=== PATIENT | female | born 1995 | race Caucasian/White ===

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

== ENCOUNTER 2017-03-28 23:52 | Emergency (ER) | payer OTHER ==
[2017-03-29] VITALS: BMI 23.6
--- NOTE | 2017-03-29 02:17 | DR.GENAD ---
HPI - PCP Primary Care Physician: JOSSIE - HPI Comment HPI Comment: PATIENT SAID SHE WAS ANEMIC AFTER GIVEN BIETH 2 WEEKS AGO. NO FEVER. SLIGHT HEADACHE. NO TRAUMA. - Complaint/Symptoms Chief Complaint Doctors Comments: HAD SYNCOPAL EPISODE AT HOME TONIGHT. 2 WEEKS POST . Chief Complaint:: SYNCOPAL EPISODE AFTER JUMPING OUT OF BED TRYING TO ANSWER THE DOOR, Self Treatment fo Chief Complaint: NONE - Nurses notes reviewed Nurses Notes Review: Yes - Source History Provided: Patient - Mode of Arrival Mode of Arrival: Ambulatory - Timing Onset of Chief Complaint: 03/28/17 Came on: Suddenly - Duration Duration: Since Onset Duration: Hours - Severity Severity: Moderate PMH - PMH Past Medical History: No Past Surgical History: No - Family History History of Family Medical Conditions: No - Social History Does patient currently use any type of tobacco product: No Have you used tobacco products in the last 12 months: No Type of Tobacco Use: None Does any household member use tobacco: No Alcohol Use: None Do you use any recreational Drugs:: No Lives With: Significant Other Lives Where: Home - infectious screening In the last 2 months have you had wt loss of >10#?: NO Have you had fever, night sweats or hemotysis?: No Have you traveled outside the country in the last 6 months?: No Isolation: Standard ROS - Review of Systems Constitutional: No Symptoms Reported. negative: Chills, Fever, Weakness, Fatigue, Loss of Appetite Eyes: No Symptoms Reported. negative: Eye Pain, Discharge ENTM: No Symptoms Reported. negative: Ear Pain, Nose Discharge, Nose Congestion , Throat Pain Respiratoy: No Symptoms Reported. negative: Productive Cough, Non-Productive Cough, Short of Breath, Wheezing, Hemoptysis Cardiovascular: No Symptoms Reported, Palpitations, Syncope. negative: Edema Gastrointestinal/Abdominal: No Symptoms Reported. negative: Constipation, Diarrhea, Nausea, Vomiting Genitourinary: No Symptoms Reported. negative: Dysuria, Frequency, Hematuria Neurological: No Symptoms Reported Musculoskeletal: No Symptoms Reported Integumentary: No Symptoms Reported Hematologic/Lymphatic: Anemia Endocrine: No Symptoms Reported All Other Systems: Reviewed and Negative PE - Vital Signs Vitals: Temperature 98.2 F Pulse Rate [Left Brachial] 66 Pulse Rate 62 Respiratory Rate 16 Blood Pressure [Left Arm] 123/88 Blood Pressure 137/94 O2 Sat by Pulse Oximetry 99 - General Limitations: No Limitations General Appearance: Alert - Head Head Exam: Normal Inspection - Eyes Eye exam: Normal Appearance - ENT ENT Exam: Normal External Ear Exam External Ear Exam: Normal External Inspection TM/Canal Exam: Bilateral Normal Nose Exam: Normal Nose Exam Mouth Exam: Normal Inspection Throat Exam: Normal Inspection - Neck Neck Exam: Trachea Midline - Chest Chest Inspection: Symmetric Chest Wall Rise - Respiratory Respiratory Exam: Normal Lung Sounds Bilat Respiratory Exam: Bilateral Clear to Auscultation - Cardiovascular Cardiovascular Exam: Regular Rate, Normal Rhythm, Normal Heart Sounds - Abdominal Exam Abdominal Exam: Normal Bowel Sounds, Soft. negative: Tenderness - Extremities Extremities Exam: Normal Inspection - Back Back Exam: Normal Inspection - Neurologic Neurological Exam: Oriented X3, CN II-XII Intact, Motor Sensory Deficit, Reflexes Normal - Psychiatric Psychiatric Exam: Agitated - Skin Skin Exam: Normal Color, Rash MDM - Additional Information Additional Information Obtained From: Family - Differential Diagnosis Differential Diagnosis: SYNCOPAL EPISODE Course - Treatment Treatment: SEE ORDERS. - Education/Counseling Education/Counseling: Patient, Family, Education Educated On: Diagnosis, Needs for Follow Up ROR - Labs Reviewed Laboratory Results Reviewed?: Yes Result Diagrams: 03/29/17 02:30 03/29/17 02:30 Laboratory: 03/29/17 03:10 Urine,Clean Catch Urine Culture - Final WBC 10.2 X10^3/uL (3.6-10.0) H 03/29/17 02:30 RBC 4.12 X10^6/uL (3.5-5.4) 03/29/17 02:30 Hgb 12.5 g/dL (12.0-16.0) 03/29/17 02:30 Hct 35.9 % (36.0-47.0) L 03/29/17 02:30 MCV 87.1 fL (80.0-100.0) 03/29/17 02:30 MCH 30.2 pg (27.0-34.0) 03/29/17 02:30 MCHC 34.7 g/dL (33.0-35.0) 03/29/17 02:30 RDW 13.4 % (11.6-16.5) 03/29/17 02:30 Plt Count 335 X10^3/uL (150.0-450.0) 03/29/17 02:30 MPV 7.0 fL (7.4-11.0) L 03/29/17 02:30 Neut % 71.2 % (42.0-75.0) 03/29/17 02:30 Lymph % 21.7 % (21.0-51.0) 03/29/17 02:30 [place] % 5.1 % (0.0-13.0) 03/29/17 02:30 Eos % 1.3 % (0.9-2.9) 03/29/17 02:30 Baso % 0.7 % (0.2-1.0) 03/29/17 02:30 Neut # 7.2 x10^3/uL (2.2-4.8) H 03/29/17 02:30 Lymph # 2.2 X10^3/uL (1.3-2.9) 03/29/17 02:30 [place] # 0.5 x10^3/uL (0.3-0.8) 03/29/17 02:30 Eos # 0.1 x10^3/uL (0.0-0.2) 03/29/17 02:30 Baso # 0.1 X10^3/uL (0.0-0.1) 03/29/17 02:30 Absolute Nucleated RBC 0.0 /100WBC 03/29/17 02:30 Sodium 138 mmol/L (136-145) 03/29/17 02:30 Corrected Sodium TNP 03/29/17 02:30 Potassium 4.0 mmol/L (3.5-5.1) 03/29/17 02:30 Chloride 106 mmol/L (98-107) 03/29/17 02:30 Carbon Dioxide 28.5 mmol/L (21-32) 03/29/17 02:30 BUN 9 mg/dL (7-18) 03/29/17 02:30 Creatinine 0.78 mg/dL (0.55-1.02) 03/29/17 02:30 Est GFR (MDRD) Af Amer > 60 (>60) 03/29/17 02:30 Est GFR (MDRD) Non-Af > 60 (>60) 03/29/17 02:30 Glucose 86 mg/dL (65-99) 03/29/17 02:30 Calcium 9.3 mg/dL (8.5-10.1) 03/29/17 02:30 Corrected Calcium TNP 03/29/17 02:30 Total Bilirubin 0.30 mg/dL (0.2-1.0) 03/29/17 02:30 AST 19 Units/L (15-37) 03/29/17 02:30 ALT 21 Units/L (12-78) 03/29/17 02:30 Alkaline Phosphatase 112 Units/L (45-150) 03/29/17 02:30 Creatine Kinase 39 Units/L (26-192) 03/29/17 02:30 CK-MB (CK-2) < 1.0 ng/mL (0-4.0) 03/29/17 02:30 CK/CKMB % Calc 2.6 % (<4) 03/29/17 02:30 Troponin I 0.09 ng/mL (0-1.5) 03/29/17 02:30 Total Protein 7.4 g/dL (6.4-8.2) 03/29/17 02:30 Albumin 3.4 g/dL (3.4-5.0) 03/29/17 02:30 Globulin 4.0 g/dL (2.5-4.5) 03/29/17 02:30 Albumin/Globulin Ratio 0.9 Ratio (1.1-2.1) L 03/29/17 02:30 Specimen Type Clean catch urine 03/29/17 03:10 Urine Color Yellow (YELLOW) 03/29/17 03:10 Urine Appearance Slightly hazy (CLEAR) 03/29/17 03:10 Urine pH 7.0 (5.0 - 8.0) 03/29/17 03:10 Ur Specific [place] 1.010 (1.000-1.030) 03/29/17 03:10 Urine Protein 1+ (NEGATIVE) 03/29/17 03:10 Urine Glucose (UA) Negative (NEGATIVE) 03/29/17 03:10 Urine Ketones Negative (NEGATIVE) 03/29/17 03:10 Urine Occult Blood 5+ (NEGATIVE) 03/29/17 03:10 Urine Nitrite Negative (NEGATIVE) 03/29/17 03:10 Urine Bilirubin Negative (NEGATIVE) 03/29/17 03:10 Urine Urobilinogen Normal (NORMAL) 03/29/17 03:10 Ur Leukocyte Esterase 2+ (NEGATIVE) 03/29/17 03:10 Urine RBC 10-15 /HPF (NEGATIVE) 03/29/17 03:10 Urine WBC 10-15 /HPF (NEGATIVE) 03/29/17 03:10 Ur Squamous Epith Cells Few /HPF (NEGATIVE) 03/29/17 03:10 Urine Bacteria 1+ /HPF (NEGATIVE) 03/29/17 03:10 Ur Culture Indicated? Yes/culture set up 03/29/17 03:10 Urine Opiates Screen Negative (NEG=<300) 03/29/17 03:10 Urine Methadone Screen Negative (NEG=<300) 03/29/17 03:10 Ur Barbiturates Screen Negative (NEG=<200) 03/29/17 03:10 Ur Phencyclidine Scrn Negative (NEG=<25) 03/29/17 03:10 Ur Amphetamines Screen Negative (NEG=<1000) 03/29/17 03:10 U Benzodiazepines Scrn Negative (NEG=<200) 03/29/17 03:10 Urine Cocaine Screen Negative (NEG=<300) 03/29/17 03:10 U Marijuana (THC) Screen Negative (NEG=<50) 03/29/17 03:10 - XRAY XRAY Interpreted by: Radiologist XRAY Findings: REPORT DISCUSS WITH PATIENT. - EKG Rhythm: SB (EKG NOTED.) - Diagnosis Discharge Problem: Episode of syncope Qualifiers: Syncope type: unspecified Qualified Code(s): R55 - Syncope and collapse UTI (urinary tract infection) Qualifiers: Urinary tract infection type: site unspecified Hematuria presence: without hematuria Qualified Code(s): N39.0 - Urinary tract infection, site not specified - Discharge Plan Disposition: 01 HOME, SELF-CARE Condition: Stable Prescriptions: Sulfamethoxazole-Trimethoprim [BACTRIM DS TAB 800/160 MG *] 1 tab PO BID #20 tab - Follow ups/Referrals Follow ups/Referrals: NFD,None [Primary Care Provider] - 3 days - Instructions Instructions: Urinary Tract Infection, Adult, [id number], Syncope, Easy-to- Read Additional Instructions: RETURN TO ED IF WORSE.
[2017-03-29 02:43] LABS: BASOPHILS # (AUTO) 0.1 X10^3/uL (0.0-0.1); BASOPHILS % (AUTO) 0.7 % (0.2-1.0); EOSINOPHILS # (AUTO) 0.1 x10^3/uL (0.0-0.2); EOSINOPHILS % (AUTO) 1.3 % (0.9-2.9); HEMATOCRIT 35.9 % (36.0-47.0); HEMOGLOBIN 12.5 g/dL (12.0-16.0); LYMPHOCYTES # (AUTO) 2.2 X10^3/uL (1.3-2.9); LYMPHOCYTES % (AUTO) 21.7 % (21.0-51.0); MEAN CORPUSCULAR HEMOGLOBIN 30.2 pg (27.0-34.0); MEAN CORPUSCULAR HGB CONC 34.7 g/dL (33.0-35.0); MEAN CORPUSCULAR VOLUME 87.1 fL (80.0-100.0); MONOCYTES # (AUTO) 0.5 x10^3/uL (0.3-0.8); MONOCYTES % (AUTO) 5.1 % (0.0-13.0); NEUTROPHILS # (AUTO) 7.2 x10^3/uL (2.2-4.8); NEUTROPHILS % (AUTO) 71.2 % (42.0-75.0); PLATELET COUNT 335 X10^3/uL (150.0-450.0); RED BLOOD COUNT 4.12 X10^6/uL (3.5-5.4); RED CELL DISTRIBUTION WIDTH 13.4 % (11.6-16.5); WHITE BLOOD COUNT 10.2 X10^3/uL (3.6-10.0)
--- NOTE | 2017-03-29 02:55 | RAD ---
EXAM: Chest X-ray INDICATION: Chest pain COMPARISION: No prior TECHNIQUE: AP, single view FINDINGS: The lungs are clear in the lung volumes are within normal limits. No pleural effusion or pneumothorax . The cardiac silhouette and mediastinum are normal. The regional skeleton is intact. IMPRESSION: Normal Chest X-Ray Reported By:
--- NOTE | 2017-03-29 02:55 | CT ---
EXAM: CT BRAIN WITHOUT CONTRAST INDICATION: Syncope COMPARISION: No Priors TECHNIQUE: Routine axial CT of the brain was performed without intravenous contrast. FINDINGS: The cerebral and cerebellar cortex are normal. The ventricular system is nondilated. No intra or extr a-axial mass or hemorrhage. The lopez-white junction is preserved. There is no evidence of subacute is chemic change. The basilar cisterns are clear. The skull is intact. The mastoid air cells are clear. IMPRESSION: Normal brain CT examination Reported By:
[2017-03-29 02:56] LABS: BLOOD UREA NITROGEN 9 mg/dL (7-18); CALCIUM 9.3 mg/dL (8.5-10.1); CARBON DIOXIDE 28.5 mmol/L (21-32); CHLORIDE 106 mmol/L (98-107); CREATININE 0.78 mg/dL (0.55-1.02); SODIUM 138 mmol/L (136-145); TROPONIN I 0.09 ng/mL (0-1.5); eGFR BLACK RACES > 60 (>60); eGFR NON BLACK RACES > 60 (>60)
[2017-03-29 03:01] LABS: ALANINE AMINOTRANSFERASE 21 Units/L (12-78); ALBUMIN 3.4 g/dL (3.4-5.0); ALKALINE PHOSPHATASE 112 Units/L (45-150); ASPARTATE AMINO TRANSFERASE 19 Units/L (15-37); CKMB % 2.6 % (<4); CREATINE KINASE 39 Units/L (26-192); CREATINE KINASE MB < 1.0 ng/mL (0-4.0); TOTAL PROTEIN 7.4 g/dL (6.4-8.2)
[2017-03-29 03:23] VITALS: BP 123/88
[2017-03-29 03:35] LABS: BILIRUBIN,URINE NEGATIVE (NEGATIVE); BLOOD/HEMOGLOBIN,URINE 5+ (NEGATIVE); GLUCOSE, URINE NEGATIVE (NEGATIVE); KETONES,URINE NEGATIVE (NEGATIVE); LEUKOCYTE ESTERASE ,URINE 2+ (NEGATIVE); NITRITES,URINE NEGATIVE (NEGATIVE); PROTEIN,URINE 1+ (NEGATIVE); UROBILINOGEN,URINE NORMAL (NORMAL)
[2017-03-29 03:43] LABS: APPEARANCE,URINE SLIGHTLY HAZY (CLEAR); BACTERIA,URINE 1+ /HPF (NEGATIVE); COLOR,URINE YELLOW (YELLOW); SQUAMOUS EPITHELIAL CELL,UR FEW /HPF (NEGATIVE)
== END 2017-03-29 03:20 | disposition home or self-care (01) ==
LOC: ER 23:52
DX: R55 Syncope and collapse (principal); N39.0 Urinary tract infection, site not specified
CPT/HCPCS: 36415; 70450; 71010; 80053; 80307; 81001; 82550; 82553; 84484; 85025; 87086; 93005; 93010; 99283; G0434

== ENCOUNTER 2017-08-07 03:06 | Emergency (ER) | payer OTHER ==
[2017-08-07 03:15] VITALS: BP 151/93; BMI 25.0
[2017-08-07] MEDS ORDERED: XYLOCAINE 1 % (PLAIN) ONE (03:15)
--- NOTE | 2017-08-07 03:45 | DR.GENAD ---
HPI - PCP Primary Care Physician: nfd - Complaint/Symptoms Chief Complaint Doctors Comments: Patient presented via EMS with complaint of injury to her left hand while on the job. She states that she was attempting to unbind the machine and got her left hand caught. Chief Complaint:: lac - Source History Provided: Patient, EMS - Mode of Arrival Mode of Arrival: EMS - Timing Onset of Chief Complaint: 08/07/17 PMH - PMH Past Medical History: No Past Surgical History: No - Family History History of Family Medical Conditions: No - Social History Does any household member use tobacco: No Alcohol Use: None Do you use any recreational Drugs:: No Lives With: Family Lives Where: Home - infectious screening In the last 2 months have you had wt loss of >10#?: NO Have you had fever, night sweats or hemotysis?: No Have you traveled outside the country in the last 6 months?: No Isolation: Standard ROS - Review of Systems Constitutional: No Symptoms Reported Eyes: No Symptoms Reported ENTM: No Symptoms Reported Respiratoy: No Symptoms Reported Cardiovascular: No Symptoms Reported Gastrointestinal/Abdominal: No Symptoms Reported Genitourinary: No Symptoms Reported Neurological: No Symptoms Reported Musculoskeletal: No Symptoms Reported Integumentary: Lesions (left hand) Hematologic/Lymphatic: No Symptoms Reported Endocrine: No Symptoms Reported Psychiatric: No Symptoms Reported All Other Systems: Reviewed and Negative PE - Vital Signs Vitals: Temperature 100.5 F Pulse Rate 75 Respiratory Rate 16 Blood Pressure [Left Arm] 123/88 Blood Pressure 151/93 O2 Sat by Pulse Oximetry 100 - General Limitations: No Limitations General Appearance: Alert, In No Apparent Distress - Head Head Exam: Normal Inspection, Atraumatic - Eyes Eye exam: Normal Appearance, PERRL, EOMI - ENT ENT Exam: Normal Exam, Normal Oropharynx External Ear Exam: Normal External Inspection TM/Canal Exam: Bilateral Normal Nose Exam: Normal Nose Exam Mouth Exam: Normal Inspection Throat Exam: Normal Inspection - Neck Neck Exam: Normal Inspection - Chest Chest Inspection: Normal Inspection - Respiratory Respiratory Exam: Normal Lung Sounds Bilat Respiratory Exam: Bilateral Clear to Auscultation - Cardiovascular Cardiovascular Exam: Regular Rate, Normal Rhythm - Abdominal Exam Abdominal Exam: Normal Inspection, Normal Bowel Sounds Abdominal Tenderness: negative: RUQ, RLQ, LUQ, LLQ, Epigastrium, Suprapubic, Diffuse, Mild, Moderate, Severe, Other - Extremities Extremities Exam: Tenderness, Edema (left lateran hand dorsally with a 1cm superficial laceration) - Back Back Exam: Normal Inspection - Neurologic Neurological Exam: Alert, Oriented X3, CN II-XII Intact - Psychiatric Psychiatric Exam: Normal Affect, Normal Mood - Skin Skin Exam: Warm, Dry Course - Reevaluation 1st: Improved - Education/Counseling Educated On: Treatment, Diagnosis, Needs for Follow Up ROR - XRAY XRAY Interpreted by: Self (Left hand 5th metacarpal with a non displaced fracture) Procedures - Laceration/Wound Repair Left Hand Wound Length (cm): 1 Wound's Depth, Shape: Linear Wound Explored: no foreign body removed Betadine Prep?: Yes Anesthesia: 1% Lidocaine (3) Wound Debrided: minimal Suture Size/Type: 5:0, Prolene Number of Sutures: 3 - Diagnosis Discharge Problem: Fracture of fifth metacarpal bone of left hand Qualifiers: Encounter type: initial encounter Fracture type: closed Metacarpal location: shaft Fracture alignment: nondisplaced Qualified Code(s): S62.357A - Nondisplaced fracture of shaft of fifth metacarpal bone, left hand, initial encounter for closed fracture - Discharge Plan Condition: Stable - Follow ups/Referrals Follow ups/Referrals: NFD,None [Primary Care Provider] - 3 days - Instructions
--- NOTE | 2017-08-07 03:54 | RAD ---
Three views of the left hand Indication hand pain after door dropped on hand with laceration. Findings: There is a transversely oriented fracture of the little finger metacarpal diaphysis. There is soft tissue swelling and moderate gas adjacent to the fracture consistent with laceration. Remain ing left hand demonstrates no osseous or soft tissue abnormality. Wrist joint alignment is maintained . Impression: Nondisplaced transverse oriented fracture of the little finger metacarpal diaphysis with adjacent soft tissue swelling and laceration. Reported By:
[2017-08-07] MEDS ORDERED: TYLENOL #3 TAB (W/CODEINE) PO ONE ×2 (03:56→03:57)
== END 2017-08-07 04:05 | disposition home or self-care (01) ==
LOC: ER 03:06
PROC: 0XQKXZZ Repair Left Hand, External Approach (ICD-10-PCS; principal; 2017-08-07)
DX: S62.357A Nondisplaced fracture of shaft of fifth metacarpal bone, left hand, initial encounter for closed fracture (principal); W31.9XXA Contact with unspecified machinery, initial encounter; Y92.9 Unspecified place or not applicable
CPT/HCPCS: 12001; 29125; 29260; 73130; 99000; 99282; 99283; J2001